=== PATIENT | male | born 1995 | race Native Hawaiian/Other Pacific Islander ===

== ENCOUNTER 2018-08-11 13:09 | Emergency (ER) | payer MEDICAID, OTHER ==
[2018-08-11] MEDS ORDERED: ZOFRAN ODT PO STA (13:23)
[2018-08-11] MEDS ORDERED: LEVSIN SL SL ONE (13:23)
[2018-08-11 13:46] VITALS: BP 111/59
--- NOTE | 2018-08-11 13:49 | Emergency Department Report ---
Blank Doc - Documentation Documentation: 22 y/o male with viral syndrome recent exposure presents to ED c/o of coryza, abdominal pain with nausea and vomiting, fatigue, dizziness, and chest ache with cough. right sided abdominal pain ( pt states he feels its due to the cramping from vomiting) Plan xray and rx for symptoms.
--- NOTE | 2018-08-11 14:37 | XRay Report ---
CHEST TWO VIEWS: 08/11/18 13:42 CLINICAL: Cough and fever. COMPARISON: None FINDINGS: Normal heart and pulmonary vasculature. The lungs are normally expanded and clear. No airspace disease or pleural effusion. The bones and soft tissues are unremarkable. IMPRESSION: Normal chest.
[2018-08-11] MEDS ORDERED: TORADOL IV ONE (15:04)
[2018-08-11] MEDS ORDERED: PEPCID IV ONE (15:04)
[2018-08-11] MEDS ORDERED: NACL 0.9% 1000 ML 1,000 ML IV ONE (15:04)
[2018-08-11] MEDS ORDERED: ZOFRAN IV ONE (15:04)
--- NOTE | 2018-08-11 16:17 | Emergency Department Report ---
Vomiting/Diarrhea - HPI Chief Complaint: Nausea/Vomiting/Diarrhea Stated Complaint: FLU LIKE SYMPTOMS Time Seen by Provider: 08/11/18 13:16 Duration: Today Severity: severe Nausea/Vomiting Severity: Moderate Diarrhea Severity: Mild Pain Location: Generalized Pain Severity: Mild Symptoms: Yes Watery Diarrhea, Yes Fever (chills), Yes Family w/ Similar Symptoms (daughter had minor NVD illness 3 days prior), Yes Contacts w/ Similar Symptoms, No Bloody diarrhea, No Able to Tolerate Fluids, No Recent Unusual Foods, No Recent Untreated Water, No Recent use of Antibiotics Other History: patient with body aches, denies cough ED Review of Systems ROS: Stated complaint: FLU LIKE SYMPTOMS Other details as noted in HPI Comment: All other systems reviewed and negative ED Past Medical Hx - Past Medical History Previous Medical History?: Yes Hx Asthma: Yes - Surgical History Past Surgical History?: Yes Additional Surgical History: pt had surgery on left leg to remove pieces of metal and stitch up his leg - Social History Smoking Status: Unknown if ever smoked - Medications Home Medications: Home Medications Medication Instructions Recorded Confirmed Last Taken Type Ibuprofen [Motrin] 800 mg PO TID PRN #20 tablet 04/12/13 Unknown Rx Promethazine [Phenergan] 25 mg PO Q6H PRN #14 tablet 04/12/13 Unknown Rx methOCARBAMOL [Robaxin] 500 mg PO BID PRN #20 tab 04/12/13 Unknown Rx Hydrocort/Pramoxine [Proctofoam-Hc] 10 gm [place] BID #1 can 09/12/13 Unknown Rx Polyethylene Glycol 3350 [Miralax] 1 tbsp PO DAILY #1 bottle 09/12/13 Unknown Rx traMADol [Ultram] 50 mg PO Q4HR PRN #15 tablet 09/12/13 Unknown Rx Dicyclomine [Bentyl] 10 mg PO QID #15 capsule 08/11/18 Unknown Rx Famotidine [Pepcid] 40 mg PO QHS #10 tablet 08/11/18 Unknown Rx Ondansetron [Zofran Odt] 4 mg PO Q8HR PRN #12 tab.rapdis 08/11/18 Unknown Rx Vomiting Diarrhea Exam - Exam General: Vital signs noted. No distress. Alert and acting appropriately. HEENT: Yes Moist Mucous Membranes, No Pharyngeal Erythema, No Pharyngeal Exudates, No Rhinorrhea, No Conjuctival Injection, No Frontal Tenderness, No Maxillary Tenderness Neck: No Adenopathy, No Rigidity Lungs: Yes Clear Lung Sounds, Yes Good Air Exchange, No Wheezes, No Stridor, No Cough, No Nasal Flaring, No Retractions, No Use of Accessory Muscles Heart exam: Regular: Yes, Murmur: No, Tachycardia: No Abdomen: Tenderness: No, Peritoneal Signs: No, Distention: No, Hyperactive Bowel sounds: No Skin exam: Rash: No, Edema: No, Normal turgor: Yes Neurologic: Alert and oriented, no deficits. Musculoskeletal: Unremarkable. ED Course Vital Signs 08/11/18 13:45 Temperature 97.5 F L Pulse Rate 88 Respiratory 16 Rate Blood Pressure 111/59 O2 Sat by Pulse 100 Oximetry ED Medical Decision Making - Medical Decision Making Patient was hydrated and given antiemetics and patient states he feels much improved. Patient be discharged home with meds for symptomatic relief will be discharged. Critical care attestation.: If time is entered above; I have spent that time in minutes in the direct care of this critically ill patient, excluding procedure time. ED Disposition Clinical Impression: Viral gastroenteritis Disposition: DC-01 TO HOME OR SELFCARE Is pt being admited?: No Does the pt Need Aspirin: No Condition: Stable Instructions: Gastroenteritis (ED) Referrals: JACKY MESSINA MD [Primary Care Provider] - 3-5 Days Time of Disposition: 16:16
== END 2018-08-11 16:28 | disposition home or self-care (01) ==
LOC: ED 13:09
DX: A08.4 Viral intestinal infection, unspecified (principal); J45.909 Unspecified asthma, uncomplicated; Z91.013 Allergy to seafood
CPT/HCPCS: 71046; 96361; 96374; 96375; 99283; J1885; J2405; J7030; Q0162

== ENCOUNTER 2019-02-15 21:17 | Emergency (ER) | payer OTHER ==
[2019-02-15 21:43] VITALS: BP 118/70
--- NOTE | 2019-02-15 21:43 | Event Note ---
ED Screening Note ED Screening Note: 23 yo with back pain hx asthma pmh inhaler no fever no chills no dysuria This initial assessment/diagnostic orders/clinical plan/treatment(s) is/are subject to change based on patients health status, clinical progression and re- assessment by fellow clinical providers in the ED. Further treatment and workup at subsequent clinical providers discretion. Patient/guardian urged not to elope from the ED as their condition may be serious if not clinically assessed and managed. Initial orders include: xr
--- NOTE | 2019-02-15 22:47 | XRay Report ---
CHEST 2 VIEWS INDICATION: pain hx asthma. COMPARISON: 08/11/2018. FINDINGS: Support devices: None. Heart: Within normal limits. Lungs/Pleura: No acute air space or interstitial disease. Prior granulomatous exposure. No significan t pleural effusion. IMPRESSION: No acute findings. Signer Name: Juancho Pepe MD Signed: 02/15/2019 10:43 PM Workstation Name: [id number]
[2019-02-15] MEDS ORDERED: IBUPROFEN PO ONE (22:52)
--- NOTE | 2019-02-16 01:14 | Emergency Department Report ---
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 Complaint: back pain Onset/Timin -: month(s) Place: work Radiation: none Severity: moderate Severity scale (0 -10): 4 Quality: sharp Consistency: constant Worsens With: movement Context: while lifting, turning/twisting, bending Associated Symptoms: denies: numbness, difficulty urinating, incontinence, fever/chills, constipation - Related Data Previous Rx's Medication Instructions Recorded Last Taken Type Ibuprofen [Motrin] 800 mg PO TID PRN #20 tablet 04/12/13 Unknown Rx Promethazine [Phenergan] 25 mg PO Q6H PRN #14 tablet 04/12/13 Unknown Rx methOCARBAMOL [Robaxin] 500 mg PO BID PRN #20 tab 04/12/13 Unknown Rx Hydrocort/Pramoxine [Proctofoam-Hc] 10 gm [place] BID #1 can 09/12/13 Unknown Rx Polyethylene Glycol 3350 [Miralax] 1 tbsp PO DAILY #1 bottle 09/12/13 Unknown Rx traMADol [Ultram] 50 mg PO Q4HR PRN #15 tablet 09/12/13 Unknown Rx Dicyclomine [Bentyl] 10 mg PO QID #15 capsule 08/11/18 Unknown Rx Famotidine [Pepcid] 40 mg PO QHS #10 tablet 08/11/18 Unknown Rx Ondansetron [Zofran Odt] 4 mg PO Q8HR PRN #12 tab.rapdis 08/11/18 Unknown Rx Cyclobenzaprine [Flexeril] 10 mg PO TID PRN #30 tablet 02/16/19 Unknown Rx Menthol/Camphor [[place] 1 applicatio TP QID PRN #1 tube 02/16/19 Unknown Rx Ointment] Naproxen [Naprosyn] 500 mg PO BID PRN #30 tablet 02/16/19 Unknown Rx Allergies Allergy/AdvReac Type Severity Reaction Status Date / Time shellfish derived Allergy Unknown Verified 08/11/18 13:46 ED Review of Systems ROS: Stated complaint: BACK PAIN Other details as noted in HPI Constitutional: denies: chills, fever Eyes: denies: eye pain, eye discharge, vision change ENT: denies: ear pain, throat pain Respiratory: denies: cough, shortness of breath, wheezing Cardiovascular: denies: chest pain, palpitations Endocrine: no symptoms reported Gastrointestinal: denies: abdominal pain, nausea, diarrhea Genitourinary: denies: urgency, dysuria Musculoskeletal: back pain Skin: denies: rash, lesions Neurological: denies: headache, weakness, paresthesias Psychiatric: denies: anxiety, depression Hematological/Lymphatic: denies: easy bleeding, easy bruising ED Past Medical Hx - Past Medical History Hx Asthma: Yes - Surgical History Additional Surgical History: pt had surgery on left leg to remove pieces of metal and stitch up his leg - Social History Smoking Status: Never Smoker Substance Use Type: None - Medications Home Medications: Home Medications Medication Instructions Recorded Confirmed Last Taken Type Ibuprofen [Motrin] 800 mg PO TID PRN #20 tablet 04/12/13 Unknown Rx Promethazine [Phenergan] 25 mg PO Q6H PRN #14 tablet 04/12/13 Unknown Rx methOCARBAMOL [Robaxin] 500 mg PO BID PRN #20 tab 04/12/13 Unknown Rx Hydrocort/Pramoxine [Proctofoam-Hc] 10 gm [place] BID #1 can 09/12/13 Unknown Rx Polyethylene Glycol 3350 [Miralax] 1 tbsp PO DAILY #1 bottle 09/12/13 Unknown Rx traMADol [Ultram] 50 mg PO Q4HR PRN #15 tablet 09/12/13 Unknown Rx Dicyclomine [Bentyl] 10 mg PO QID #15 capsule 08/11/18 Unknown Rx Famotidine [Pepcid] 40 mg PO QHS #10 tablet 08/11/18 Unknown Rx Ondansetron [Zofran Odt] 4 mg PO Q8HR PRN #12 tab.rapdis 08/11/18 Unknown Rx Cyclobenzaprine [Flexeril] 10 mg PO TID PRN #30 tablet 02/16/19 Unknown Rx Menthol/Camphor [[place] 1 applicatio TP QID PRN #1 tube 02/16/19 Unknown Rx Ointment] Naproxen [Naprosyn] 500 mg PO BID PRN #30 tablet 02/16/19 Unknown Rx ED Physical Exam - General Limitations: No Limitations General appearance: alert, in no apparent distress - Head Head exam: Present: atraumatic, normocephalic - Eye Eye exam: Present: normal appearance, PERRL, EOMI Pupils: Present: normal accommodation - ENT ENT exam: Present: normal orophraynx, mucous membranes moist, TM's normal bilaterally, normal external ear exam - Neck Neck exam: Present: normal inspection, full ROM. Absent: tenderness, meningismus, lymphadenopathy, thyromegaly - Respiratory Respiratory exam: Present: normal lung sounds bilaterally. Absent: respiratory distress, wheezes, stridor, chest wall tenderness - Cardiovascular Cardiovascular Exam: Present: regular rate, normal rhythm, normal heart sounds. Absent: systolic murmur, diastolic murmur, rubs, gallop - GI/Abdominal GI/Abdominal exam: Present: soft. Absent: distended, tenderness, guarding, rebound, rigid, normal bowel sounds, bruit, hernia - Rectal Rectal exam: Present: deferred - Extremities Exam Extremities exam: Present: normal inspection, full ROM, normal capillary refill. Absent: tenderness - Back Exam Back exam: Present: full ROM, tenderness (mild paraspinus muscle pain to deep palpation no posterior vertebral point tenderness no swelling no deformity weakness rom intact unrestricted), muscle spasm, paraspinal tenderness. Absent: CVA tenderness (R), CVA tenderness (L), vertebral tenderness, rash noted - Neurological Exam Neurological exam: Present: alert, oriented X3 - Psychiatric Psychiatric exam: Present: normal affect, normal mood - Skin Skin exam: Present: warm, dry, intact, normal color. Absent: rash ED Course Vital Signs 02/15/19 02/15/19 21:42 23:24 Temperature 98.6 F Pulse Rate 88 Respiratory 18 16 Rate Blood Pressure 118/70 O2 Sat by Pulse 95 Oximetry ED Medical Decision Making - Radiology Data Radiology results: report reviewed, image reviewed Referring Physician: TRENTON HERNÁNDEZ Patient Name: BLANKA LOPES Date of : 1995 Sex: Male Report Date: 2019-02-15 Report Status: Finalized Findings [facility] [address] [place] [address] XRay Report Signed Patient: BLANKA LOPES MR# : [id number] : 1995 Acct:[id number] Age/Sex: 23 / M ADM Date: 02/15/19 Loc: ED Attending Dr: Ordering Physician: TRENTON HERNÁNDEZ Date of Service: 02/15/19 Procedure(s): XR chest routine 2V Accession Number(s): [id number] cc: TRNETON HERNÁNDEZ Fluoro Time In Minutes: CHEST 2 VIEWS INDICATION: pain hx asthma. COMPARISON: 08/11/2018. FINDINGS: Support devices: None. Heart: Within normal limits. Lungs/Pleura: No acute air space or interstitial disease. Prior granulomatous exposure. No significant pleural effusion. IMPRESSION: No acute findings. Signer Name: Juancho Pepe MD Signed: 02/15/2019 10:43 PM Workstation Name: [id number] Transcribed By: ES Dictated By: Juancho Pepe MD Electronically Authenticated By: Juancho Pepe MD Signed Date/Time: 02/15/192242 DD/ 41 TD/TT: - Medical Decision Making this is a thoracic muscle strain xray: no fracture no soft tissue abnormality lungs sounds are clear bilat throughout , there is sob pain is reproducible to palpation. Critical care attestation.: If time is entered above; I have spent that time in minutes in the direct care of this critically ill patient, excluding procedure time. ED Disposition Clinical Impression: Strain of thoracic region Qualifiers: Encounter type: initial encounter Qualified Code(s): S29.019A - Strain of muscle and tendon of unspecified wall of thorax, initial encounter Disposition: - TO HOME OR SELFCARE Is pt being admited?: No Does the pt Need Aspirin: No Condition: Stable Instructions: Core Strengthening Exercises (GEN), Muscle Spasm (ED), Thoracic Pain (ED) Prescriptions: Cyclobenzaprine [Flexeril] 10 mg PO TID PRN #30 tablet PRN Reason: Muscle Spasm Naproxen [Naprosyn] 500 mg PO BID PRN #30 tablet PRN Reason: Pain , Severe (7-10) Menthol/Camphor [[place] Ointment] 1 applicatio TP QID PRN #1 tube PRN Reason: pain Referrals: PRIMARY CARE, [Primary Care Provider] - 3-5 Days Forms: Work/School Release Form(ED) Time of Disposition: 01:14
== END 2019-02-16 01:30 | disposition home or self-care (01) ==
LOC: ED 02-16 00:16
DX: S29.019A Strain of muscle and tendon of unspecified wall of thorax, initial encounter (principal); J45.909 Unspecified asthma, uncomplicated; Z79.899 Other long term (current) drug therapy; Z79.1 Long term (current) use of non-steroidal anti-inflammatories (NSAID); Z91.013 Allergy to seafood; X50.0XXA Overexertion from strenuous movement or load, initial encounter; Y93.89 Activity, other specified; Y92.69 Other specified industrial and construction area as the place of occurrence of the external cause; Y99.8 Other external cause status
CPT/HCPCS: 71046; 99283

== ENCOUNTER 2019-04-08 09:52 | Emergency (ER) | payer OTHER ==
[2019-04-08 10:15] VITALS: BP 110/67
--- NOTE | 2019-04-08 11:01 | Emergency Department Report ---
- General Chief Complaint: Urogenital-Male Stated Complaint: BODY SOAR/FLU LIKE SYM/STD CHECK Time Seen by Provider: 04/08/19 10:41 Source: patient Mode of arrival: Ambulatory Limitations: No Limitations - History of Present Illness Initial Comments: Patient is 23 years old male with no significant past medical history. Patient presented to the ER complaining of cough, congestion and generalized body ache since last night. Patient denied any fever or chills. Patient also stated that he wanted to get an STD check but does not have any symptoms at this moment. MD Complaint: cough, rhinorrhea, nasal congestion -: Last night - Related Data Previous Rx's Medication Instructions Recorded Last Taken Type Ibuprofen [Motrin] 800 mg PO TID PRN #20 tablet 04/12/13 Unknown Rx Promethazine [Phenergan] 25 mg PO Q6H PRN #14 tablet 04/12/13 Unknown Rx methOCARBAMOL [Robaxin] 500 mg PO BID PRN #20 tab 04/12/13 Unknown Rx Hydrocort/Pramoxine [Proctofoam-Hc] 10 gm [place] BID #1 can 09/12/13 Unknown Rx Polyethylene Glycol 3350 [Miralax] 1 tbsp PO DAILY #1 bottle 09/12/13 Unknown Rx traMADol [Ultram] 50 mg PO Q4HR PRN #15 tablet 09/12/13 Unknown Rx Dicyclomine [Bentyl] 10 mg PO QID #15 capsule 08/11/18 Unknown Rx Famotidine [Pepcid] 40 mg PO QHS #10 tablet 08/11/18 Unknown Rx Ondansetron [Zofran Odt] 4 mg PO Q8HR PRN #12 tab.rapdis 08/11/18 Unknown Rx Cyclobenzaprine [Flexeril] 10 mg PO TID PRN #30 tablet 02/16/19 Unknown Rx Menthol/Camphor [[place] 1 applicatio TP QID PRN #1 tube 02/16/19 Unknown Rx Ointment] Naproxen [Naprosyn] 500 mg PO BID PRN #30 tablet 02/16/19 Unknown Rx Allergies Allergy/AdvReac Type Severity Reaction Status Date / Time shellfish derived Allergy Unknown Verified 08/11/18 13:46 ED Review of Systems ROS: Stated complaint: BODY SOAR/FLU LIKE SYM/STD CHECK Other details as noted in HPI Comment: All other systems reviewed and negative Constitutional: denies: chills, fever ENT: congestion Respiratory: cough. denies: shortness of breath, SOB with exertion, wheezing Gastrointestinal: denies: abdominal pain ED Past Medical Hx - Past Medical History Previous Medical History?: Yes Hx Asthma: Yes - Surgical History Past Surgical History?: Yes Additional Surgical History: pt had surgery on left leg to remove pieces of metal and stitch up his leg - Social History Smoking Status: Never Smoker Substance Use Type: None - Medications Home Medications: Home Medications Medication Instructions Recorded Confirmed Last Taken Type Ibuprofen [Motrin] 800 mg PO TID PRN #20 tablet 04/12/13 Unknown Rx Promethazine [Phenergan] 25 mg PO Q6H PRN #14 tablet 04/12/13 Unknown Rx methOCARBAMOL [Robaxin] 500 mg PO BID PRN #20 tab 04/12/13 Unknown Rx Hydrocort/Pramoxine [Proctofoam-Hc] 10 gm [place] BID #1 can 09/12/13 Unknown Rx Polyethylene Glycol 3350 [Miralax] 1 tbsp PO DAILY #1 bottle 09/12/13 Unknown Rx traMADol [Ultram] 50 mg PO Q4HR PRN #15 tablet 09/12/13 Unknown Rx Dicyclomine [Bentyl] 10 mg PO QID #15 capsule 08/11/18 Unknown Rx Famotidine [Pepcid] 40 mg PO QHS #10 tablet 08/11/18 Unknown Rx Ondansetron [Zofran Odt] 4 mg PO Q8HR PRN #12 tab.rapdis 08/11/18 Unknown Rx Cyclobenzaprine [Flexeril] 10 mg PO TID PRN #30 tablet 02/16/19 Unknown Rx Menthol/Camphor [[place] 1 applicatio TP QID PRN #1 tube 02/16/19 Unknown Rx Ointment] Naproxen [Naprosyn] 500 mg PO BID PRN #30 tablet 02/16/19 Unknown Rx ED Physical Exam - General Limitations: No Limitations General appearance: alert, in no apparent distress - Head Head exam: Present: atraumatic, normocephalic, normal inspection - Eye Eye exam: Present: normal appearance - ENT ENT exam: Present: normal exam, normal orophraynx, mucous membranes moist - Neck Neck exam: Present: normal inspection, full ROM. Absent: tenderness, meningismus, lymphadenopathy, thyromegaly - Respiratory Respiratory exam: Present: normal lung sounds bilaterally - Cardiovascular Cardiovascular Exam: Present: regular rate, normal rhythm, normal heart sounds - GI/Abdominal GI/Abdominal exam: Present: soft, normal bowel sounds. Absent: distended, tenderness, guarding, rebound, rigid, organomegaly, mass, bruit, pulsatile mass, hernia - Extremities Exam Extremities exam: Present: normal inspection, full ROM, normal capillary refill. Absent: tenderness, pedal edema, calf tenderness - Back Exam Back exam: Present: normal inspection, full ROM. Absent: CVA tenderness (R), CVA tenderness (L) - Neurological Exam Neurological exam: Present: alert, oriented X3, CN II-XII intact - Psychiatric Psychiatric exam: Present: normal mood - Skin Skin exam: Present: warm, intact, normal color ED Course Vital Signs 04/08/19 10:13 Temperature 98.4 F Pulse Rate 81 Respiratory 16 Rate Blood Pressure 110/67 O2 Sat by Pulse 100 Oximetry Critical care attestation.: If time is entered above; I have spent that time in minutes in the direct care of this critically ill patient, excluding procedure time. ED Disposition Clinical Impression: Viral syndrome Disposition: DC-01 TO HOME OR SELFCARE Is pt being admited?: No Condition: Stable Instructions: Viral Syndrome (ED) Forms: Work/School Release Form(ED)
== END 2019-04-08 11:15 | disposition home or self-care (01) ==
LOC: ED 09:52
DX: B34.9 Viral infection, unspecified (principal); J45.909 Unspecified asthma, uncomplicated; Z91.013 Allergy to seafood; Z79.899 Other long term (current) drug therapy; Z79.1 Long term (current) use of non-steroidal anti-inflammatories (NSAID)
CPT/HCPCS: 99282

== ENCOUNTER 2019-07-27 08:51 | Emergency (ER) | payer OTHER ==
[2019-07-27 09:09] VITALS: BP 120/69
--- NOTE | 2019-07-27 12:06 | Emergency Department Report ---
ED Lower Extremity HPI - General Chief Complaint: Extremity Injury, Lower Stated Complaint: RT FOOT INJURY/PAIN Time Seen by Provider: 07/27/19 11:14 Source: patient Mode of arrival: Ambulatory Limitations: No Limitations - History of Present Illness Initial Comments: This is a 23-year-old male nontoxic, well nourished in appearance, no acute signs of distress presents to the ED with c/o of acute on chronic right foot pain 4 years. Patient stated that he had a fracture after playing basketball 4 years ago and had a xray in the ED but never followed-up with orthopedic. Patient stated has pains intermittent during cold wethers. Patient denies any new trauma. Patient denies any numbness, tingling, fever, chills, nausea, vomiting, chest pain, shortness of breath, headache, stiff neck. Patient denies any joint swelling or joint redness. Patient denies decreased range of motion. Patient denies any abnormal gait. Patient denies any drug allergies or significant past medical history. MD Complaint: foot injury -: year(s) (4) Injury: Foot: Right Place: street/outdoors Severity: mild Severity scale (0 -10): 3 Improves With: nothing Worsens With: nothing Associated Symptoms: ambulatory. denies: snap/pop sensation, swelling, numbness, tingling, unable to bear weight, able to partially bear weight - Related Data Previous Rx's Medication Instructions Recorded Last Taken Type Ibuprofen [Motrin] 800 mg PO TID PRN #20 tablet 04/12/13 Unknown Rx Promethazine [Phenergan] 25 mg PO Q6H PRN #14 tablet 04/12/13 Unknown Rx methOCARBAMOL [Robaxin] 500 mg PO BID PRN #20 tab 04/12/13 Unknown Rx Hydrocort/Pramoxine [Proctofoam-Hc] 10 gm [place] BID #1 can 09/12/13 Unknown Rx Polyethylene Glycol 3350 [Miralax] 1 tbsp PO DAILY #1 bottle 09/12/13 Unknown Rx traMADoL [Ultram] 50 mg PO Q4HR PRN #15 tablet 09/12/13 Unknown Rx Dicyclomine [Bentyl] 10 mg PO QID #15 capsule 08/11/18 Unknown Rx Famotidine [Pepcid] 40 mg PO QHS #10 tablet 08/11/18 Unknown Rx Ondansetron [Zofran Odt] 4 mg PO Q8HR PRN #12 tab.rapdis 08/11/18 Unknown Rx Cyclobenzaprine [Flexeril] 10 mg PO TID PRN #30 tablet 02/16/19 Unknown Rx Menthol/Camphor [[place] 1 applicatio TP QID PRN #1 tube 02/16/19 Unknown Rx Ointment] Naproxen [Naprosyn] 500 mg PO BID PRN #30 tablet 02/16/19 Unknown Rx Naproxen [Naprosyn] 500 mg PO BID #14 tablet 04/08/19 Unknown Rx guaiFENesin [Robitussin] 5 ml PO TID PRN #100 ml 04/08/19 Unknown Rx Allergies Allergy/AdvReac Type Severity Reaction Status Date / Time shellfish derived Allergy Unknown Verified 08/11/18 13:46 ED Review of Systems ROS: Stated complaint: RT FOOT INJURY/PAIN Other details as noted in HPI Constitutional: denies: chills, fever Eyes: denies: eye pain, eye discharge, vision change ENT: denies: ear pain, throat pain Respiratory: denies: cough, shortness of breath, wheezing Cardiovascular: denies: chest pain, palpitations Endocrine: no symptoms reported Gastrointestinal: denies: abdominal pain, nausea, diarrhea Genitourinary: denies: urgency, dysuria Musculoskeletal: denies: back pain, joint swelling, arthralgia Skin: denies: rash, lesions Neurological: denies: headache, weakness, paresthesias Psychiatric: denies: anxiety, depression Hematological/Lymphatic: denies: easy bleeding, easy bruising ED Past Medical Hx - Past Medical History Previous Medical History?: Yes Hx Asthma: Yes Additional medical history: right foot pain - Surgical History Past Surgical History?: Yes Additional Surgical History: pt had surgery on left leg to remove pieces of metal and stitch up his leg - Social History Smoking Status: Current Every Day Smoker Substance Use Type: None - Medications Home Medications: Home Medications Medication Instructions Recorded Confirmed Last Taken Type Ibuprofen [Motrin] 800 mg PO TID PRN #20 tablet 04/12/13 Unknown Rx Promethazine [Phenergan] 25 mg PO Q6H PRN #14 tablet 04/12/13 Unknown Rx methOCARBAMOL [Robaxin] 500 mg PO BID PRN #20 tab 04/12/13 Unknown Rx Hydrocort/Pramoxine [Proctofoam-Hc] 10 gm [place] BID #1 can 09/12/13 Unknown Rx Polyethylene Glycol 3350 [Miralax] 1 tbsp PO DAILY #1 bottle 09/12/13 Unknown Rx traMADoL [Ultram] 50 mg PO Q4HR PRN #15 tablet 09/12/13 Unknown Rx Dicyclomine [Bentyl] 10 mg PO QID #15 capsule 08/11/18 Unknown Rx Famotidine [Pepcid] 40 mg PO QHS #10 tablet 08/11/18 Unknown Rx Ondansetron [Zofran Odt] 4 mg PO Q8HR PRN #12 tab.rapdis 08/11/18 Unknown Rx Cyclobenzaprine [Flexeril] 10 mg PO TID PRN #30 tablet 02/16/19 Unknown Rx Menthol/Camphor [[place] 1 applicatio TP QID PRN #1 tube 02/16/19 Unknown Rx Ointment] Naproxen [Naprosyn] 500 mg PO BID PRN #30 tablet 02/16/19 Unknown Rx Naproxen [Naprosyn] 500 mg PO BID #14 tablet 04/08/19 Unknown Rx guaiFENesin [Robitussin] 5 ml PO TID PRN #100 ml 04/08/19 Unknown Rx ED Physical Exam - General Limitations: No Limitations General appearance: alert, in no apparent distress - Head Head exam: Present: atraumatic, normocephalic - Neck Neck exam: Present: normal inspection, full ROM - Extremities Exam Extremities exam: Present: normal inspection, full ROM, tenderness, normal capillary refill. Absent: joint swelling, calf tenderness - Expanded Lower Extremity Exam Right Hip exam: Present: normal inspection, full ROM. Absent: tenderness, swelling Upper Leg exam: Present: normal inspection, full ROM. Absent: tenderness, swelling Knee exam: Present: normal inspection, full ROM. Absent: tenderness, swelling Lower Leg exam: Present: normal inspection, full ROM. Absent: tenderness, swelling Ankle exam: Present: normal inspection, full ROM. Absent: tenderness, swelling Foot/Toe exam: Present: normal inspection, full ROM, tenderness. Absent: swelling, abrasion, laceration, ecchymosis, deformity, crepidus, dislocation, erythema, amputation, puncture wound, foreign body, calcaneal tenderness, tenderness at base of 5th metatarsal, nail avulsion, subungual hematoma Neuro vascular tendon exam: Present: no vascular compromise Gait: Positive: observed and limited by pain 1 - pain here - Back Exam Back exam: Present: full ROM - Neurological Exam Neurological exam: Present: alert, oriented X3, normal gait - Psychiatric Psychiatric exam: Present: normal affect, normal mood - Skin Skin exam: Present: warm, dry, intact, normal color. Absent: rash ED Course Vital Signs 07/27/19 09:04 Temperature 98.0 F Pulse Rate 77 Respiratory 16 Rate Blood Pressure 120/69 O2 Sat by Pulse 97 Oximetry - Reevaluation(s) Reevaluation #1: 07/27/19 12:09 Patient is speaking in full sentences with no signs of distress noted. ED Lower Extremity MDM - Medical Decision Making This is a 23-year-old male that presents with chronic right foot pain. Patient is stable and was examined by me. I referred patient to an orthopedic doctor for further evaluation for possible MRI. Patient does have normal gait with no tenderness and no joint swelling. No ecchymosis. no joint redness or swelling. Not warm to touch. No signs of cellulites present. At time of discharge, the pa tient does not seem toxic or ill in appearance. No acute signs of distress noted. Patient agrees to discharge treatment plan of care. No further questions noted by the patient. Critical care attestation.: If time is entered above; I have spent that time in minutes in the direct care of this critically ill patient, excluding procedure time. ED Disposition Clinical Impression: Chronic toe pain, right foot Disposition: MED SCREENING EXAM-LEFT Is pt being admited?: No Does the pt Need Aspirin: No Condition: Stable Additional Instructions: Follow-up with a orthopedic doctor in 3-5 days or if symptoms worsen and continue return to emergency room as soon as possible. Referrals: PRIMARY CARE, [Primary Care Provider] - 3-5 Days BREANN MANN MD [Staff Physician] - 3-5 Days JUANCARLOS BERG MD [Staff Physician] - 3-5 Days [facility] [place] [Outside] - 3-5 Days
== END 2019-07-27 12:14 | disposition left against medical advice (07) ==
LOC: ED 08:51
DX: M79.671 Pain in right foot (principal); M79.674 Pain in right toe(s); G89.29 Other chronic pain; J45.909 Unspecified asthma, uncomplicated; F17.200 Nicotine dependence, unspecified, uncomplicated; Z98.890 Other specified postprocedural states; Z79.899 Other long term (current) drug therapy; Z91.013 Allergy to seafood
CPT/HCPCS: 99281

== ENCOUNTER 2020-10-10 20:09 | Emergency (ER) | payer SELFPAY | END 2020-10-10 23:03 | disposition left against medical advice (07) | LOC: ED 20:09 | DX: Z53.21 Procedure and treatment not carried out due to patient leaving prior to being seen by health care provider (principal) ==